=== PATIENT | male | born 1975 | race Caucasian/White ===

== ENCOUNTER 2022-01-26 13:04 | Inpatient (IN) ==
[~2022-01-26 13:04] MED LIST: *HR* Etomidate 20 MG/10 ML AMPUL IVP ONE; *HR* Succinylcholine 200 MG/10 ML VIAL IVP ONE
[2022-01-26] MEDS ORDERED: Azithromycin 500 MG in 0.9 % Sodium Chloride 250 ML IVPB ONE (13:15)
[2022-01-26] MEDS ORDERED: Piperacillin/Tazobactam 3.375 GM in 0.9 % Sodium Chloride Mini Bag 100 ML IVPB ONE (13:15)
[2022-01-26] MEDS ORDERED: methylPREDNISolone 125 MG/2 ML VIAL IVP ONE (13:15)
[2022-01-26] MEDS ORDERED: 0.9 % Sodium Chloride 1,000 ML IVC ONE (13:15)
[2022-01-26] MEDS ORDERED: 0.9 % Sodium Chloride 1,000 ML ONE ×2 (13:24→15:57)
[2022-01-26 13:28] LABS: ABG Base Excess 4 mEq/L (-2 to 3); ABG HCO3 35 mEq/L (21-27); ABG Oxygen Saturation 100 % (95-98); ABG PCO2 71 mmHg (35-45); ABG PO2 187 mmHg (85-104); ABG TCO2 37 mEq/L (20-26)
[2022-01-26 13:48] LABS: Basophils % 0.3 %; Hemoglobin 18.2 g/dL (12.9-16.9); Immature Granulocytes % 0.3 % (0-4); Lymphocytes # 0.8 K/mcL (0.6-4.6); Lymphocytes % 7.6 %; Mean Corpuscular HGB Conc 32.7 g/dL (31.6-35.5); Mean Corpuscular Hemoglobin 33.1 pg (28.0-33.3); Mean Corpuscular Volume 101.1 fL (83.0-100.0); Mean Platelet Volume 10.8 fL (9.4-12.4); Monocytes # 1.1 K/mcL (0.0-1.3); Monocytes % 10.9 %; Neutrophils # 8.3 K/mcL (1.6-8.9); Nucleated Red Blood Cells 2.9 /100 WBC (0); Platelet Count 229 K/mcL (140-400); Red Cell Distribution Width 17.9 % (11.5-14.5); Segmented Neutrophils % 80.9 %; White Blood Count 10.2 K/mcL (4.3-11.1)
[2022-01-26] MEDS: FentaNYL (PF) 1,000 MCG/100 ML IV.SOLN IVC SCH (13:50)
[2022-01-26] MEDS: Midazolam HCl 50 MG/50 ML IV.SOLN IVC SCH (13:51)
[2022-01-26 13:57] LABS: INR 2.1; Prothrombin Time 23.2 Seconds (9.4-12.1)
[2022-01-26 13:59] LABS: Activated Partial Thrombo Time 27.4 Seconds (26.0-36.0)
[2022-01-26 14:07] LABS: Hematocrit 55.6 % (37.5-50.1)
[2022-01-26 14:19] LABS: Alanine Aminotransferase 70 Units/L (7-52); Albumin 3.6 g/dL (3.5-5.7); Albumin/Globulin Ratio 1.2 (1.1-2.2); Alkaline Phosphatase 146 Units/L (34-104); Aspartate Amino Transferase 184 Units/L (13-39); BUN/Creatinine Ratio 27 (6-26); Bilirubin,Direct 2.1 mg/dL (0.0-0.2); Bilirubin,Indirect 1.5 mg/dL (0.0-1.0); Bilirubin,Total 3.6 mg/dL (0.3-1.0); Blood Urea Nitrogen 30 mg/dL (6-20); Calcium 8.7 mg/dL (8.6-10.3); Carbon Dioxide 31 mEq/L (23-29); Chloride 81 mEq/L (98-107); Creatine Kinase 1761 Units/L (30-223); Glucose 140 mg/dL (70-105); Osmolality,Calculated 276 (280-300); Potassium 4.9 mEq/L (3.5-5.1); Sodium 129 mEq/L (136-145); Total Protein 6.6 g/dL (6.4-8.9); Troponin I < 0.03 ng/mL (< 0.04); eGFR For African Americans > 60 (> 60); eGFR For Non-African Americans > 60 (> 60)
[2022-01-26] MEDS ORDERED: Iopamidol - 370 500 ML MLS IVP ONE ×2 (15:23→16:22)
[2022-01-26] MEDS ORDERED: 0.9 % Sodium Chloride 1,500 ML IV ONE (15:52)
[2022-01-26] MEDS ORDERED: 0.9 % Sodium Chloride 250 ML ONE (15:57)
[2022-01-26] MEDS ORDERED: *HR* Norepinephrine 4 MG/4 ML VIAL IVC ONE (15:57)
[2022-01-26] MEDS: Norepinephrine 4 MG/254 ML IV.SOLN IVC SCH (16:04)
[2022-01-26] MEDS ORDERED: Naloxone 0.4 MG/ML INJ IVP PRN (16:26)
[2022-01-26] MEDS ORDERED: 0.9 % Sodium Chloride w KCl 20 MEQ/1,000 ML MLS IVC SCH (16:30)
[2022-01-26] MEDS ORDERED: Albuterol 2.5 MG/3 ML NEBULIZER IH PRN (16:34)
[2022-01-26 16:36] LABS: Influenza A PCR Negative (Negative); Influenza B PCR Negative (Negative); Resp. Syncytial Virus PCR Negative (Negative); SARS-CoV-2 by PCR (In House) Negative (Negative)
[2022-01-26] MEDS ORDERED: Artificial Tears SOLN 15 ML BOTTLE BOTH EYES PRN (17:22)
[2022-01-26] MEDS: Ipratropium/Albuterol Neb 3 ML IH SCH ×3 (18:00→23:37)
[2022-01-26 18:07] LABS: Bilirubin,Urine Small (Negative); Blood,Urine Trace (Negative); Clarity,Urine Turbid (Clear); Color,Urine Dark-Yellow (Yellow); Glucose,Urine (UA) Normal (Normal); Hyaline Casts,Urine Many per lpf (None Seen); Ketones,Urine 20 mg/dL (Negative); Leukocyte Esterase,Urine Negative (Negative); Mucus,Urine Few per lpf (None-Few); Nitrite,Urine Negative (Negative); Protein,Urine 70 mg/dL (Neg-Trace); RBC,Urine 0-3 per hpf (0-3); Specific Gravity,Urine 1.022 (1.010-1.025); Squamous Epithelial Cell,Urine Few per hpf (None-Few); WBC,Urine 15-30 per hpf (0-3)
[2022-01-26 18:14] LABS: Sodium, Urine 30.1 mEq/L
[2022-01-26 18:20] LABS: Amphetamine Screen,Urine Positive ng/mL (Cutoff=1000); Barbiturate Screen,Urine Negative ng/mL (Cutoff=200); Benzodiazepines Screen,Urine Positive ng/mL (Cutoff=200); Cannabinoid Screen,Urine Positive ng/mL (Cutoff = 50); Cocaine Screen,Urine Negative ng/mL (Cutoff= 300); Opiate Screen,Urine Positive ng/mL (Cutoff=300); Phencyclidine Screen,Urine Negative ng/mL (Cutoff=25)
[2022-01-26] MEDS ORDERED: 0.9 % Sodium Chloride 500 ML IVC ONE (18:36)
[2022-01-26] MEDS: MethylPREDNISolone 40 MG/ML VIAL IVP SCH ×2 (19:01→23:16)
[2022-01-26] MEDS: Artificial Tears SOLN 15 ML BOTTLE BOTH EYES SCH ×2 (19:01→23:16)
[2022-01-26] MEDS: Pantoprazole 40 MG VIAL IVP SCH (19:48)
[2022-01-26] MEDS: 0.9 % Sodium Chloride 1,000 ML IVC SCH ×2 (19:49→21:20)
[2022-01-26] MEDS: Chlorhexidine Rinse 15 ML MOUTHWASH MM SCH (19:49)
[2022-01-26 20:06] LABS: ABG Base Excess 4 mEq/L (-2 to 3); ABG HCO3 29 mEq/L (21-27); ABG Oxygen Saturation 93 % (95-98); ABG PCO2 46 mmHg (35-45); ABG PH 7.42 pH Units (7.32-7.45); ABG PO2 68 mmHg (85-104); ABG TCO2 31 mEq/L (20-26); Blood Gas Modality ASSIST CONTROL; Blood Gas VT 500 cc
[2022-01-26] MEDS: Dexmedetomidine HCl 400 MCG/100 ML MLS IVC SCH (20:28)
[2022-01-26 20:55] LABS: Adenovirus Not Detected (Not Detect); Coronavirus 229E Not Detected (Not Detect); Coronavirus HKU1 Not Detected (Not Detect); Coronavirus NL63 Not Detected (Not Detect); Coronavirus OC43 Not Detected (Not Detect); Human Metapneumovirus Not Detected (Not Detect); SARS-CoV-2 Not Detected (Not Detect)
[2022-01-26 20:56] LABS: Bordetella Pertussis Not Detected (Not Detect); Chlamydophila pneumoniae Not Detected (Not Detect); Human Rhinovirus/Enterovirus Not Detected (Not Detect); Influenza A Subtype 2009 H1 Not Detected (Not Detect); Influenza B Not Detected (Not Detect); Mycoplasma pneumoniae Not Detected (Not Detect); Parainfluenza Virus 1 Not Detected (Not Detect); Parainfluenza Virus 2 Not Detected (Not Detect); Parainfluenza Virus 3 Not Detected (Not Detect); Parainfluenza Virus 4 Not Detected (Not Detect); Respiratory Syncytial Virus Not Detected (Not Detect)
[2022-01-26] MEDS: Cefepime HCl 2,000 MG in 0.9 % Sodium Chloride 10 ML IVP SCH (23:15)
[2022-01-27] MEDS: FentaNYL (PF) 1,000 MCG/100 ML IV.SOLN IVC SCH ×3 (00:39→10:55)
[2022-01-27] MEDS: Dexmedetomidine HCl 400 MCG/100 ML MLS IVC SCH ×3 (02:54→10:12)
[2022-01-27] MEDS: Artificial Tears SOLN 15 ML BOTTLE BOTH EYES SCH ×6 (03:52→23:14)
[2022-01-27] MEDS: Ipratropium/Albuterol Neb 3 ML IH SCH ×6 (03:52→23:26)
[2022-01-27 04:48] LABS: ABG Base Excess 3 mEq/L (-2 to 3); ABG HCO3 27 mEq/L (21-27); ABG Oxygen Saturation 93 % (95-98); ABG PCO2 41 mmHg (35-45); ABG PH 7.43 pH Units (7.32-7.45); ABG PO2 65 mmHg (85-104); ABG TCO2 28 mEq/L (20-26); Blood Gas Modality ASSIST CONTROL; Blood Gas VT 500 cc
[2022-01-27] MEDS: MethylPREDNISolone 40 MG/ML VIAL IVP SCH ×4 (05:59→23:31)
[2022-01-27] MEDS: Chlorhexidine Rinse 15 ML MOUTHWASH MM SCH ×2 (07:11→20:08)
[2022-01-27] MEDS: Pantoprazole 40 MG VIAL IVP SCH (07:11)
[2022-01-27] MEDS: Cefepime HCl 2,000 MG in 0.9 % Sodium Chloride 10 ML IVP SCH ×3 (07:11→23:32)
[2022-01-27 07:18] LABS: Hematocrit 47.8 % (37.5-50.1); Mean Corpuscular HGB Conc 33.3 g/dL (31.6-35.5); Mean Corpuscular Hemoglobin 33.4 pg (28.0-33.3); Mean Corpuscular Volume 100.4 fL (83.0-100.0); Mean Platelet Volume 11.2 fL (9.4-12.4); Platelet Count 149 K/mcL (140-400); Red Blood Count 4.76 M/mcL (4.19-5.50); Red Cell Distribution Width 18.3 % (11.5-14.5); White Blood Count 5.2 K/mcL (4.3-11.1)
[2022-01-27 07:23] LABS: Hemoglobin 15.9 g/dL (12.9-16.9)
[2022-01-27 07:29] LABS: INR 1.8; Prothrombin Time 20.5 Seconds (9.4-12.1)
[2022-01-27 07:38] LABS: Alanine Aminotransferase 69 Units/L (7-52); Albumin 2.9 g/dL (3.5-5.7); Albumin/Globulin Ratio 1.2 (1.1-2.2); Alkaline Phosphatase 96 Units/L (34-104); Aspartate Amino Transferase 138 Units/L (13-39); BUN/Creatinine Ratio 43 (6-26); Bilirubin,Total 1.9 mg/dL (0.3-1.0); Blood Urea Nitrogen 32 mg/dL (6-20); Calcium 7.6 mg/dL (8.6-10.3); Carbon Dioxide 27 mEq/L (23-29); Chloride 92 mEq/L (98-107); Creatine Kinase 372 Units/L (30-223); Globulin 2.4 g/dL (2.4-3.5); Glucose 163 mg/dL (70-105); Osmolality,Calculated 284 (280-300); Potassium 4.6 mEq/L (3.5-5.1); Sodium 132 mEq/L (136-145); Total Protein 5.3 g/dL (6.4-8.9); eGFR For African Americans > 60 (> 60); eGFR For Non-African Americans > 60 (> 60)
[2022-01-27] MEDS ORDERED: Furosemide 20 MG/2 ML VIAL IVP ONE (08:06)
[2022-01-27] MEDS: *HR* Heparin 5,000 UNIT/ML VIAL SQ SCH ×2 (10:58→17:45)
[2022-01-27 12:17] LABS: Magnesium 1.7 mg/dL (1.6-2.6); Phosphorous 5.1 mg/dL (2.7-4.5)
[2022-01-27] MEDS ORDERED: Azithromycin 500 MG in 0.9 % Sodium Chloride 250 ML IVPB SCH (13:00)
[2022-01-27 14:20] LABS: A.calcoaceticus-baumannii cplx Not Detected (Not Detect); Bacteroides fragilis by PCR Not Detected (Not Detect); Enterobacter cloacae Cmplx PCR Not Detected (Not Detect); Enterobacterales by PCR Not Detected (Not Detect); Enterococcus faecalis by PCR Not Detected (Not Detect); Enterococcus faecium by PCR Not Detected (Not Detect); Escherichia coli by PCR Not Detected (Not Detect); Klebs. pneumoniae group by PCR Not Detected (Not Detect); Klebsiella aerogenes by PCR Not Detected (Not Detect); Klebsiella oxytoca by PCR Not Detected (Not Detect); Salmonella species by PCR Not Detected (Not Detect); Staph epidermidis by PCR DETECTED (Not Detect); Staph lugdunensis by PCR Not Detected (Not Detect); Staphylococcus aureus by PCR Not Detected (Not Detect); Streptococcus agalactiae(B)PCR Not Detected (Not Detect); Streptococcus by PCR Not Detected (Not Detect); Streptococcus pneumoniae PCR Not Detected (Not Detect); Streptococcus pyogenes (A) PCR Not Detected (Not Detect); mecA/C Methicillin-Resist Gene DETECTED (Not Detect)
[2022-01-27 14:21] LABS: Candida albicans by PCR Not Detected (Not Detect); Candida auris by PCR Not Detected (Not Detect); Candida glabrata by PCR Not Detected (Not Detect); Candida krusei by PCR Not Detected (Not Detect); Candida parapsilosis by PCR Not Detected (Not Detect); Candida tropicalis by PCR Not Detected (Not Detect); Crypto. neoformans/gattii PCR Not Detected (Not Detect); Proteus by PCR Not Detected (Not Detect); Pseudomonas aeruginosa by PCR Not Detected (Not Detect); Serratia marcescens by PCR Not Detected (Not Detect); Stenotrophomonas maltophilia Not Detected (Not Detect)
[2022-01-27 15:54] LABS: ABG Base Excess 4 mEq/L (-2 to 3); ABG HCO3 31 mEq/L (21-27); ABG Oxygen Saturation 92 % (95-98); ABG PCO2 55 mmHg (35-45); ABG PH 7.36 pH Units (7.32-7.45); ABG PO2 67 mmHg (85-104); ABG TCO2 33 mEq/L (20-26); Blood Gas Modality CPAP/PS; Blood Gas Pressure Support 5 cm H2O
[2022-01-27] MEDS ORDERED: *HR* LORazepam 1 MG TABLET PO PRN (16:32)
[2022-01-28] MEDS: *HR* Heparin 5,000 UNIT/ML VIAL SQ SCH ×3 (02:51→17:23)
[2022-01-28] MEDS: Artificial Tears SOLN 15 ML BOTTLE BOTH EYES SCH ×2 (02:52→07:19)
[2022-01-28] MEDS: Ipratropium/Albuterol Neb 3 ML IH SCH ×6 (03:50→23:46)
[2022-01-28] MEDS: MethylPREDNISolone 40 MG/ML VIAL IVP SCH (06:30)
[2022-01-28] MEDS: Chlorhexidine Rinse 15 ML MOUTHWASH MM SCH (07:18)
[2022-01-28] MEDS: Pantoprazole 40 MG VIAL IVP SCH (07:18)
[2022-01-28] MEDS: Cefepime HCl 2,000 MG in 0.9 % Sodium Chloride 10 ML IVP SCH ×2 (07:19→15:40)
[2022-01-28] MEDS ORDERED: (Buprenorphine Hcl/Naloxone 8/2 MG SL) SL SCH (09:00)
[2022-01-28] MEDS ORDERED: *HR* Buprenorphine HCl 8 MG TAB.SUBL SL SCH (09:00)
[2022-01-28] MEDS ORDERED: Gabapentin 400 MG CAPSULE PO SCH (09:00)
[2022-01-28 09:30] LABS: Alanine Aminotransferase 64 Units/L (7-52); Albumin 3.3 g/dL (3.5-5.7); Albumin/Globulin Ratio 1.1 (1.1-2.2); Alkaline Phosphatase 104 Units/L (34-104); Aspartate Amino Transferase 88 Units/L (13-39); BUN/Creatinine Ratio 41 (6-26); Bilirubin,Total 1.7 mg/dL (0.3-1.0); Blood Urea Nitrogen 27 mg/dL (6-20); Calcium 8.7 mg/dL (8.6-10.3); Carbon Dioxide 35 mEq/L (23-29); Chloride 92 mEq/L (98-107); Globulin 2.9 g/dL (2.4-3.5); Glucose 115 mg/dL (70-105); Osmolality,Calculated 288 (280-300); Potassium 4.3 mEq/L (3.5-5.1); Sodium 136 mEq/L (136-145); Total Protein 6.2 g/dL (6.4-8.9); eGFR For African Americans > 60 (> 60); eGFR For Non-African Americans > 60 (> 60)
[2022-01-28 09:37] LABS: Hematocrit 51.8 % (37.5-50.1); Hemoglobin 16.6 g/dL (12.9-16.9); Mean Corpuscular Hemoglobin 33.2 pg (28.0-33.3); Mean Corpuscular Volume 103.6 fL (83.0-100.0); Mean Platelet Volume 11.1 fL (9.4-12.4); Platelet Count 182 K/mcL (140-400); Red Cell Distribution Width 18.8 % (11.5-14.5)
[2022-01-28 09:38] LABS: White Blood Count 9.9 K/mcL (4.3-11.1)
[2022-01-28] MEDS ORDERED: predniSONE 20 MG TABLET PO SCH (11:45)
[2022-01-28] MEDS ORDERED: Naloxone 0.4 MG/ML INJ IVP PRN (12:29)
[2022-01-28] MEDS ORDERED: Albuterol 2.5 MG/3 ML NEBULIZER IH PRN (12:29)
[2022-01-28] MEDS ORDERED: Azithromycin 500 MG in 0.9 % Sodium Chloride 250 ML IVPB SCH (13:00)
[2022-01-28] MEDS: Norepinephrine 4 MG/254 ML IV.SOLN IVC SCH (15:11)
[2022-01-28] MEDS: 0.9 % Sodium Chloride 1,000 ML IVC SCH (15:11)
[2022-01-28] MEDS: Midazolam HCl 50 MG/50 ML IV.SOLN IVC SCH (15:12)
[2022-01-28] MEDS: Ibuprofen 600 MG TABLET PO PRN (17:47)
[2022-01-28] MEDS: Gabapentin 400 MG CAPSULE PO SCH (21:36)
[2022-01-28] MEDS: Nicotine 21 MG PATCH.TD24 TD SCH (21:38)
[2022-01-29] MEDS: Cefepime HCl 2,000 MG in 0.9 % Sodium Chloride 10 ML IVP SCH ×2 (01:57→07:58)
[2022-01-29] MEDS: *HR* Heparin 5,000 UNIT/ML VIAL SQ SCH ×2 (01:57→09:57)
[2022-01-29] MEDS: Ipratropium/Albuterol Neb 3 ML IH SCH ×5 (03:49→20:05)
[2022-01-29 06:37] LABS: Hematocrit 46.1 % (37.5-50.1); Hemoglobin 14.4 g/dL (12.9-16.9); Mean Corpuscular HGB Conc 31.2 g/dL (31.6-35.5); Mean Corpuscular Hemoglobin 33.2 pg (28.0-33.3); Mean Corpuscular Volume 106.2 fL (83.0-100.0); Mean Platelet Volume 10.1 fL (9.4-12.4); Platelet Count 153 K/mcL (140-400); Red Blood Count 4.34 M/mcL (4.19-5.50); Red Cell Distribution Width 18.7 % (11.5-14.5); White Blood Count 9.7 K/mcL (4.3-11.1)
[2022-01-29 06:57] LABS: Alanine Aminotransferase 54 Units/L (7-52); Albumin 3.1 g/dL (3.5-5.7); Albumin/Globulin Ratio 1.2 (1.1-2.2); Alkaline Phosphatase 88 Units/L (34-104); Aspartate Amino Transferase 65 Units/L (13-39); BUN/Creatinine Ratio 36 (6-26); Bilirubin,Total 1.4 mg/dL (0.3-1.0); Blood Urea Nitrogen 24 mg/dL (6-20); Calcium 8.4 mg/dL (8.6-10.3); Carbon Dioxide 39 mEq/L (23-29); Chloride 95 mEq/L (98-107); Globulin 2.5 g/dL (2.4-3.5); Glucose 159 mg/dL (70-105); Osmolality,Calculated 291 (280-300); Sodium 137 mEq/L (136-145); Total Protein 5.6 g/dL (6.4-8.9); eGFR For African Americans > 60 (> 60); eGFR For Non-African Americans > 60 (> 60)
[2022-01-29] MEDS: predniSONE 20 MG TABLET PO SCH (07:58)
[2022-01-29] MEDS: Gabapentin 400 MG CAPSULE PO SCH ×2 (07:58→21:23)
[2022-01-29] MEDS: *HR* Buprenorphine HCl 8 MG TAB.SUBL SL SCH (07:58)
[2022-01-29] MEDS: Azithromycin 250 MG TABLET PO SCH (08:11)
[2022-01-29] MEDS: Nicotine 21 MG PATCH.TD24 TD SCH (16:46)
[2022-01-29] MEDS: Ibuprofen 600 MG TABLET PO PRN (18:06)
[2022-01-30] MEDS: Ipratropium/Albuterol Neb 3 ML IH SCH ×3 (00:50→07:24)
[2022-01-30 02:18] LABS: Hemoglobin 15.3 g/dL (12.9-16.9); Mean Corpuscular HGB Conc 30.6 g/dL (31.6-35.5); Mean Corpuscular Hemoglobin 33.5 pg (28.0-33.3); Mean Corpuscular Volume 109.4 fL (83.0-100.0); Platelet Count 139 K/mcL (140-400); Red Blood Count 4.57 M/mcL (4.19-5.50); Red Cell Distribution Width 18.4 % (11.5-14.5); White Blood Count 7.8 K/mcL (4.3-11.1)
[2022-01-30 02:30] LABS: Alanine Aminotransferase 75 Units/L (7-52); Albumin 3.4 g/dL (3.5-5.7); Albumin/Globulin Ratio 1.3 (1.1-2.2); Alkaline Phosphatase 108 Units/L (34-104); Aspartate Amino Transferase 85 Units/L (13-39); BUN/Creatinine Ratio 26 (6-26); Bilirubin,Total 1.3 mg/dL (0.3-1.0); Blood Urea Nitrogen 22 mg/dL (6-20); Calcium 8.6 mg/dL (8.6-10.3); Carbon Dioxide 38 mEq/L (23-29); Chloride 96 mEq/L (98-107); Globulin 2.7 g/dL (2.4-3.5); Glucose 138 mg/dL (70-105); Osmolality,Calculated 296 (280-300); Potassium 4.1 mEq/L (3.5-5.1); Sodium 140 mEq/L (136-145); Total Protein 6.1 g/dL (6.4-8.9); eGFR For African Americans > 60 (> 60); eGFR For Non-African Americans > 60 (> 60)
[2022-01-30] MEDS ORDERED: *HR* Enoxaparin 40 MG/0.4 ML SYRINGE SQ SCH (06:00)
[2022-01-30] MEDS: Azithromycin 250 MG TABLET PO SCH (08:09)
[2022-01-30] MEDS: Ibuprofen 600 MG TABLET PO PRN (08:09)
[2022-01-30] MEDS: Gabapentin 400 MG CAPSULE PO SCH (08:09)
[2022-01-30] MEDS: *HR* Buprenorphine HCl 8 MG TAB.SUBL SL SCH (08:10)
[2022-01-30] MEDS: predniSONE 20 MG TABLET PO SCH (08:10)
[2022-01-30 10:27] VITALS: BP 118/78; PULSE 101; TEMP 98.2; O2SAT 92
[2022-02-01 11:53] LABS: Alpha-1-Antitrypsin 295 mg/dL (90-200)
== END 2022-01-30 11:13 | disposition home or self-care (01) | DRG 140 ==
LOC: EMEROOARM 13:04 → SUATTDRO 17:54 → ICNU 17:54 → 3BNU 01-28 15:09
PROVIDERS: ADMIT Internal Medicine; ATTEND Internal Medicine